=== PATIENT | male | born 1950 | race Caucasian/White ===

== ENCOUNTER 2018-04-16 13:54 | Outpatient (CLI) | payer MEDICARE, OTHER ==
[~2018-04-16] VITALS: Ht 198.1 cm; Wt 133.8 kg
[2018-04-16] MEDS ORDERED: EMPA10TA PO (14:02)
[2018-04-16 14:04] VITALS: BP 139/85
[2018-04-16 14:34] LABS: BASOPHILS % (AUTO) 1 % (0-10); EOSINOPHILS # (AUTO) 0.2 10^3/uL (0.0-0.3); EOSINOPHILS % (AUTO) 4 % (0-10); HEMATOCRIT 42 % (40-54); HEMOGLOBIN 14.8 G/DL (13.3-17.7); LYMPHOCYTES # (AUTO) 1.5 X 10^3 (1.0-4.0); LYMPHOCYTES % (AUTO) 31 % (12-44); MEAN CORPUSCULAR HEMOGLOBIN 32 PG (25-34); MEAN CORPUSCULAR HGB CONC 35 G/DL (32-36); MEAN CORPUSCULAR VOLUME 91 FL (80-99); MEAN PLATELET VOLUME 11.3 FL (7.4-10.4); MONOCYTES # (AUTO) 0.8 X 10^3 (0.0-1.0); MONOCYTES % (AUTO) 16 % (0-12); NEUTROPHILS # (AUTO) 2.4 X 10^3 (1.8-7.8); NEUTROPHILS % (AUTO) 49 % (42-75); PLATELET COUNT 173 10^3/uL (130-400); RED BLOOD COUNT 4.61 10^6/uL (4.35-5.85); RED CELL DISTRIBUTION WIDTH 13.3 % (10.0-14.5); WHITE BLOOD COUNT 4.8 10^3/uL (4.3-11.0)
[2018-04-16 14:53] LABS: CREATININE SERUM 1.2 MG/DL (0.60-1.30); POTASSIUM 4.4 MMOL/L (3.6-5.0)
== END 2018-04-16 14:30 | disposition home or self-care (01) ==
LOC: PREOP 13:54
PROVIDERS: ATTEND Otolaryngology Otolaryngology/Facial Plastic Surgery
DX: Z01.818 Encounter for other preprocedural examination (principal); C44.320 Squamous cell carcinoma of skin of unspecified parts of face
CPT/HCPCS: 36415; 80048; 85025; 87081; 93005

== ENCOUNTER 2018-04-24 07:58 | Day surgery (SDC) | payer MEDICARE, OTHER ==
[~2018-04-24] VITALS: Ht 198.1 cm; Wt 132.9 kg
[2018-04-24] MEDS: LACTATED RINGERS 1,000 ML IV PRN ×3 (07:30→12:05)
[~2018-04-24 07:58] MED LIST: EMPA10TA PO
[2018-04-24 08:15] VITALS: BP 150/85
[2018-04-24] MEDS ORDERED: ceFAZolin INJECTION 1,000 MG in NS (IVPB) 50 ML IV ONE (09:00)
[2018-04-24] MEDS ORDERED: LIDOCAINE/EPI 1%-1:200,000 (XYLOCAINE) 10 ML VIAL ONE (10:30)
[2018-04-24] MEDS ORDERED: DEXAMETHASONE 10 MG/ML (DECADRON) 1 ML VIAL ONE (10:39)
[2018-04-24] MEDS ORDERED: proPOfol 200 MG/20 ML (DIPRIVAN) VIAL IV ONE (10:39)
[2018-04-24] MEDS ORDERED: SEVOFLURANE (ULTANE) 15 ML INHAL SOLN ONE ×2 (10:39→12:33)
[2018-04-24] MEDS ORDERED: ONDANSETRON 4 MG/2 ML (SDV) Z0FRAN ONE (10:39)
[2018-04-24] MEDS ORDERED: LIDOCAINE PF 2% 5 ML (XYLOCAINE) VIAL ONE (10:39)
[2018-04-24] MEDS ORDERED: fentaNYL INJECTION 100 MCG/2 ML AMP ONE (10:40)
[2018-04-24] MEDS ORDERED: MIDAZOLAM 2 MG/2 ML (VERSED) VIAL ONE (10:41)
--- NOTE | 2018-04-24 10:48 | Progress Note-Pre Operative ---
Pre-Operative Progress Note H&P Reviewed The H&P was reviewed, patient examined and no changes noted. Date Seen by Provider: Apr 24, 2018 Time Seen by Provider: 10:30 Date H&P Reviewed: Apr 24, 2018 Time H&P Reviewed: 10:30 Pre-Operative Diagnosis: Squamous cell carcinoma of Right [place] LESLY GLEZ MD Apr 24, 2018 10:48 am
[2018-04-24] MEDS ORDERED: MUPIROCIN 2% OINT 22 GM (BACTROBAN) TUBE ONE (11:54)
[2018-04-24] MEDS ORDERED: HYDROcodone/APAP 5 MG/325 MG (LORTAB) TAB PO PRN (12:30)
[2018-04-24] MEDS ORDERED: ACETAMINOPHEN 325 MG TABLET/CAPLET (TYLENOL) PO PRN (12:30)
--- NOTE | 2018-04-24 12:30 | Progress Note-Post Operative ---
Post-Operative Progess Note Surgeon (s)/Process Improvement Engineer (s) Surgeon LESLY GLEZ MD Process Improvement Engineer n/a Pre-Operative Diagnosis Squamous cell carcinoma of Right [place] Post-Operative Diagnosis same Post-Op Procedure Note Date of Procedure: Apr 24, 2018 Name of Procedure Performed: Excision of Right Squamous Cell cArcinoma with INtermediate Repair Description & Findings Description and Findings: n/a Anesthesia Type lma Estimated Blood Loss minimal Packing none. Specimen(s) collected/removed right tenriism [id number] clear LESLY GLEZ MD Apr 24, 2018 12:30 pm
[2018-04-24] MEDS ORDERED: ONDANSETRON 4 MG/2 ML (SDV) Z0FRAN IVP PRN (12:45)
[2018-04-24] MEDS ORDERED: MEPERIDINE (DEMEROL) INJ 50 MG/ML IVP PRN (12:45)
[2018-04-24] MEDS ORDERED: morphine INJ 10 MG/ML 1ML (SYR OR VIAL) IVP PRN (12:45)
--- NOTE | 2018-04-24 13:05 | Anesthesia-General Post-Op ---
General Patient Condition Mental Status/LOC: Same as Preop Cardiovascular: Satisfactory Nausea/Vomiting: Absent Respiratory: Satisfactory Pain: Controlled Complications: Absent Post Op Complications Complications None Follow Up Care/Instructions Patient Instructions None needed. Anesthesia/Patient Condition Patient Condition Patient is doing well, no complaints, stable vital signs, no apparent adverse anesthesia problems. No complications reported per nursing. D/C home per [facility] Criteria: Yes MARYELLEN HO CRNA Apr 24, 2018 13:05
[2018-04-24 13:30] VITALS: BP 147/84
[2018-04-24] MEDS ORDERED: HYDR-3812 PO (13:40)
[2018-04-24 14:00] VITALS: BP 146/92
[2018-04-24 14:30] VITALS: BP_SYST 146; BP_SYST 153; BP_DIAS 91; BP_DIAS 92
== END 2018-04-24 14:30 | disposition home or self-care (01) ==
LOC: SDC 07:58
PROVIDERS: ATTEND Otolaryngology Otolaryngology/Facial Plastic Surgery
DX: C44.320 Squamous cell carcinoma of skin of unspecified parts of face (principal); Z96.651 Presence of right artificial knee joint
CPT/HCPCS: 88305; 88331; 88332